=== PATIENT | female | born 1980 | race Caucasian/White ===

== ENCOUNTER 2018-08-16 00:11 | Outpatient (CLI) | payer OTHER, SELFPAY ==
--- NOTE | 2018-08-16 10:00 | DI.RAD_ITS ---
SYMPTOMS/DIAGNOSIS: DISABILITY DETERMINATION, BACK PAIN LUMBAR SPINE: AP and lateral views. There are five lumbar type vertebral bodies. No spondylolysis or spondylolisthesis is appreciated. The vertebral bodies, disc spaces and posterior elements are all well maintained. The bones appear normally mineralized. IMPRESSION: Negative examination. Identified by photo drivers license
== END 2018-08-16 00:31 ==
PROVIDERS: PCP General Practice; Visit Provider Pediatrics Pediatric Rheumatology
DX: M54.5 Low back pain (principal); Z02.71 Encounter for disability determination
CPT/HCPCS: 72100

== ENCOUNTER 2018-09-08 17:00 | Emergency (ER) | payer MEDICAID, SELFPAY ==
[2018-09-08 17:02] VITALS: BP 142/93; PULSE 99; RESP 18; TEMP 36.5; O2SAT 98
[2018-09-08] MEDS: Acetaminophen 500 MG TAB 1000 MG PO (17:20)
[2018-09-08] MEDS: Lidocaine 5% Patch 1 PATCH TP (17:20)
[2018-09-08] MEDS: Albuterol/Ipratropium 3 ML UPD VIAL (17:20)
[2018-09-08] MEDS: Ketorolac 30 MG/ML VIAL IM (17:20)
[2018-09-08] MEDS: diphenhydrAMINE 25 MG CAP (17:42)
--- NOTE | 2018-09-08 17:59 | DI.RAD_ITS ---
SYMPTOM/DIAGNOSIS: COUGH, RT UPPER CHEST PAIN PA AND LATERAL CHEST: The heart is normal in size. The lungs are clear. The mediastinal structures and pleura appear intact. CONCLUSION: Normal chest.
--- NOTE | 2018-09-08 18:26 | ED.GENADUL_ITS ---
Discharge Plan Disposition Patient Disposition: HOME Condition: Good Discharge Details Chief Complaint: RespSymp Clinical Impression: Asthma, Pneumonia Primary Care Provider: Matthew Beckham ED Provider: German Whalen Home Meds and New Rx's Prescriptions: New doxycycline hyclate 100 mg tablet,delayed release (DR/EC) 100 mg PO BID Qty: 20 RF: 0 No Action dextroamphetamine-amphetamine [Adderall XR] 20 MG capsule,extended release 24hr 20 mg PO DAILY Qty: 2 RF: 0 methadone [Dolophine] 10 MG tablet 105 mg PO DAILY RF: 0 amitriptyline 150 MG tablet 150 mg PO DAILY RF: 0 gabapentin 600 mg Tablet 600 mg PO BID RF: 0 prazosin 2 mg Capsule 2 mg PO BID RF: 0 Discharge Instructions Instructions: Asthma (ED), Pneumonia (ED) Additional Instructions: Please take Tylenol and Motrin as needed for pain. Please take the antibiotic as directed. Please use your albuterol inhaler every 4-6 hours for the next 2-3 days. If you notice any worsening of your symptoms, or any new symptoms such as vomiting, diarrhea, fever, chills, shortness of breath, chest pain, numbness, weakness, or fainting , please return immediately to the emergency department for reevaluation. Please follow up with your primary care provider as soon as possible for reassessment and reevaluation. As always, it was a pleasure participating in your medical care today. Referrals: Matthew Beckham MD [Primary Care Provider] - Medical Decision Making This is a pleasant 37-year-old female with a past medical history of tobacco use, and reactive airway disease who presents today for evaluation of cough for the last week and a half, followed by an episode of notable coughing that happened now ago, after which she had mild to moderate reproducible pain in her right upper chest. She denies any fever or chills. She denies any headache, neck pain, pleuritic chest pain, nausea, vomiting, diarrhea. Physical exam is clinically consistent with a musculoskeletal strain, most likely an intercostal strain secondary to her coughing episode. She may very well have a mild community-acquired pneumonia which we will evaluate for with x-ray. X-ray will also evaluate for potential pneumothorax. Vital signs are stable and reassuring. No signs of significant respiratory compromise. No significant clinical red flags or risk factors for PE. 6:30 PM Chest x-ray results are negative for any significant pneumonia, however clinically she is concerning for mild pneumonia with 1-1/2 weeks of symptoms, with productive sputum. We will start her on doxycycline. She has complete resolution of her pain with Lidoderm patch and Toradol. I feel that she is clinically consistent with a mild muscular skeletal strain. Recommend continuation with her albuterol every 4-6 hours. I have extensively reviewed the treatment plan and discharge instructions with the patient. I have addressed all patient concerns at this time. The patient was made aware of what symptoms to monitor for that would warrant a return to the emergency department. Discussed the plan with the patient, they demonstrate verbal understanding and agreement with our assessment and plan at this time. COMPARISON: No relevant prior studies available. FINDINGS: Lungs: Moderately hyperaerated lungs consistent with deep inspiratory effort vs significant reactive airway disease. Pleural space: Unremarkable. No pleural effusion. No pneumothorax. Heart/Mediastinum: Unremarkable. No cardiomegaly. Bones/joints: Unremarkable. IMPRESSION: Moderately hyperaerated lungs consistent with deep inspiratory effort vs significant reactive airway disease. Dictated and Authenticated by: Joey Davis MD. Ordering:BRANDYN Porter MD HPI General Date/Time Provider Initiated Documentation: 09/08/18 17:03 . HPI Narrative: This is a 37-year-old female with past medical history of tobacco abuse and asthma, who presents today for evaluation of cough and right upper chest pain. Patient states that she has had a cough for the last 1-1/2 weeks that has gradually been getting worse. It has productive quiroga sputum. She states that she had a notable coughing fit 1 hour ago and she developed right upper lung chest pain. Her pain is now made worse when she coughs or palpates her chest. Is improved by nothing. She has not taken any Tylenol or Motrin. She has used her inhalers at home this does improve her symptoms. Patient denies any other complaints at this time. Denies PE risk factors such as recent long car rides, immobilization, recent surgery, prior history of DVT or PE, family history of PE or DVT, morbid obesity, exogenous estrogen and smoking, hemoptysis, history of cancer. Related Data Home Medications Medication Instructions Recorded Confirmed methadone [Dolophine] 105 mg PO DAILY 09/20/12 09/08/18 amitriptyline 150 mg PO DAILY 10/05/16 09/08/18 dextroamphetamine-amphetamine 20 mg PO DAILY #2 tab-cap 01/18/17 09/08/18 [Adderall Xr 20mg Capsule Sa] doxycycline hyclate 100 mg PO BID #20 tab 09/08/18 gabapentin 600 mg PO BID 09/08/18 09/08/18 prazosin 2 mg PO BID 09/08/18 09/08/18 Previous Rx's Medication Instructions Recorded doxycycline hyclate 100 mg PO BID #20 tab 09/08/18 Allergies Allergy/AdvReac Type Severity Reaction Status Date / Time Penicillins Allergy Mild Hives Unverified 09/08/18 17:21 General Stated Complaint: RespSymp KARIS: 3 Review of Systems Review of Systems All systems reviewed & are unremarkable except as noted in HPI and below PFSH Surgical History section (~2004) Family History Mother Colon cancer Pancreatic cancer Stroke Social History Smoking/Tobacco Use Status: Current every day Alcohol Intake: never Drug use: Current Sobriety Substance use type: does not use Do you feel safe at home: Yes Do you feel safe in your relationship?: Yes Exam Narrative Exam Narrative: 1.Const: Well-nourished, Well-developed, appearing stated age 2.Eyes: PERRL, no conjunctival injection, and symmetrical lids. 3.ENT: Atraumatic external nose and ears. Moist MM. Neck: Symmetric, trachea midline, No thyromegaly. 4.CVS: +S1/S2, No murmurs or gallops. Peripheral pulses 2+ and equal in all extremities. Brisk capillary refill in all extremities. 5.RESP: Unlabored respiratory effort. Minimal crackles in the bases. No rhonchi. Reproducible tenderness on palpation of the left posterior and left anterior chest wall. 6.GI: Soft, Nontender/Nondistended, No hepatosplenomegaly. No guarding or rebound. 7.MSK: Normocephalic/Atraumatic, Extremities w/o deformity or ttp No cyanosis or clubbing, Normal movement of all extremities 8.Skin: Warm, Dry. No rashes or lesions. 9.Neuro: branch mechanic II-XII grossly intact. Sensation grossly intact, no focal neurologic deficits. 10.Psych: (AAO) x3. Appropriate mood and affect Course Vital Signs Temperature 36.5 C 09/08/18 17:02 Pulse 99 H 03/31/19 17:02 Respiratory Rate 18 09/08/18 17:02 Blood Pressure 142/93 H 09/08/18 17:02 Pulse Oximetry 98 09/08/18 17:02 Temperature 36.5 C 09/08/18 17:02 Temperature Source Temporal Artery Scan 09/08/18 17:02 Pulse 99 H 09/08/18 17:02 Respiratory Rate 18 09/08/18 17:02 Blood Pressure 142/93 H 09/08/18 17:02 Blood Pressure Position Sitting 09/08/18 17:02 Pulse Oximetry 98 09/08/18 17:02 Oxygen Delivery Method Room Air 09/08/18 17:02 Oxygen Flow Rate 0 09/08/18 17:02 Pain Level 7 09/08/18 17:02
--- NOTE | 2018-09-08 18:32 | DI.VRAD_ITS ---
EXAM: XR Chest, 2 Views EXAM DATE/TIME: 09/08/2018 5:09 PM CLINICAL HISTORY: 37 years old, female; Pain; Chest pain; Right-sided chest pain; Patient HX: RT upper chest pain. Cp w/o cough TECHNIQUE: Imaging protocol: XR of the chest, 2 views. COMPARISON: No relevant prior studies available. FINDINGS: Lungs: Moderately hyperaerated lungs consistent with deep inspiratory effort vs significant reactive airway disease. Pleural space: Unremarkable. No pleural effusion. No pneumothorax. Heart/Mediastinum: Unremarkable. No cardiomegaly. Bones/joints: Unremarkable. IMPRESSION: Moderately hyperaerated lungs consistent with deep inspiratory effort vs significant reactive airway disease. Dictated and Authenticated by: Joey Davis MD. Ordering:BRANDYN Porter MD
[2018-09-08 18:51] VITALS: BP 108/59; PULSE 90; RESP 18; TEMP 36.7; O2SAT 95
[2018-09-08] MEDS: Doxycycline Hyclate 100 MG CAP (18:53)
--- NOTE | 2018-09-09 13:09 | NUR.NOTE ---
[facility]ing Note[facility] ER. Per Dr. Isidra Vincent yes the prescription can be replaced with regular Doscycycline. Elida Gan.
== END 2018-09-08 18:53 | disposition home or self-care (01) ==
LOC: ER 19:14
PROVIDERS: Emergency Provider Student in an Organized Health Care Education/Training Program; PCP General Practice
DX: J45.909 Unspecified asthma, uncomplicated (principal); J18.9 Pneumonia, unspecified organism; F17.210 Nicotine dependence, cigarettes, uncomplicated
CPT/HCPCS: 96372; 99284; 71046; J1885; J7620

== ENCOUNTER 2018-12-03 07:31 | Outpatient (CLI) | payer MEDICAID, SELFPAY ==
[2018-12-05 05:23] LABS: Vitamin D 25 Total 10.4 ng/ml (30-100)
[2018-12-06 21:52] LABS: 25-Hydroxy D Total 14 ng/mL; 25-Hydroxy D2 <4.0 ng/mL; 25-Hydroxy D3 14 ng/mL
== END 2018-12-03 07:51 ==
PROVIDERS: PCP General Practice; Visit Provider Nurse Practitioner Psychiatric/Mental Health
DX: F41.1 Generalized anxiety disorder (principal)
CPT/HCPCS: 36415; 82306

== ENCOUNTER 2018-12-30 12:07 | Emergency (ER) | payer MEDICAID, SELFPAY ==
[2018-12-30 12:17] VITALS: BP 112/69; PULSE 105; RESP 16; TEMP 36.8; O2SAT 93
[2018-12-30] MEDS: Normal Saline 1,000 ML 1000 ML IV ×2 (12:58→14:56)
--- NOTE | 2018-12-30 12:59 | DI.RAD_ITS ---
SYMPTOM/DIAGNOSIS; COUGH, CONGESTION, HEADACHE CHEST X-RAY: PA lateral. Comparison is 09/08/18 The heart is normal in size. The lungs are clear. The mediastinal structures and pleura appear intact. CONCLUSION: Normal chest.
[2018-12-30 13:03] LABS: Abs Immature Grans 0.01 k/cumm (0.0-0.09); Absolute Basophil Count 0.01 k/cumm (0.0-0.2); Absolute Eosinophil Count 0.02 k/cumm (0.0-0.7); Absolute Lymphocyte Count 0.99 k/cumm (1.2-3.4); Absolute Monocyte Count 0.48 k/cumm (0.11-0.7); Basophils % 0.1; Eosinophils % 0.3; HCT 36.6 % (36.0-46.0); HGB 11.3 g/dL (12.0-15.5); Immature Grans % 0.1; Lymphocytes % 13.5; Mean Corp. HGB Concentration 30.9 g/dL (32.0-36.0); Mean Corpuscular Hemoglobin 27.2 pg (27.0-33.0); Mean Corpuscular Volume 88.2 fL (80-95); Mean Platelet Volume 10.2 fL (8.0-11.0); Monocytes % 6.6; Neutrophils % 79.4; Platelet Count 231 x1000/uL (130-400); RBC 4.15 m/cumm (4.00-5.20); RBC Distribution Width 15.4 % (11.7-14.6); White Blood Cell Count 7.31 k/cumm (4.4-10.8)
--- NOTE | 2018-12-30 13:10 | ED.GENADUL_ITS ---
Discharge Plan Disposition Patient Disposition: HOME Discharge Details Chief Complaint: Nausea/Vomit/Diar Clinical Impression: URI (upper respiratory infection), Headache, Nausea, Diarrhea Primary Care Provider: Matthew Beckham ED Provider: Eloy Saavedra Home Meds and New Rx's Prescriptions: New prednisone 20 mg tablet 40 mg PO DAILY 5 Days Qty: 10 RF: 0 No Action methadone [Dolophine] 10 MG tablet 105 mg PO DAILY RF: 0 amitriptyline 150 MG tablet 150 mg PO DAILY RF: 0 gabapentin 600 mg Tablet 600 mg PO BID RF: 0 prazosin 2 mg Capsule 2 mg PO BID RF: 0 dexmethylphenidate [Focalin XR] 25 mg Capsule,Er Biphasic 50-50 25 mg PO DAILY RF: 0 Discharge Instructions Instructions: Upper Respiratory Infection (ED), Acute Nausea and Vomiting (ED), General Headache (ED) Additional Instructions: Your blood work today proved to be unremarkable. Your symptoms are concerning for upper respiratory infection. Return to the emergency department should your headache becomes severe, you develop neck stiffness, fever greater than 100.3 Fahrenheit, vomiting, severe abdominal pain or cramping Referrals: Matthew Beckham MD [Primary Care Provider] - 5 days Medical Decision Making Svetlana is a 38-year-old nontoxic-appearing female presenting to the emergency department with constitutional symptoms of headache, nausea, diarrhea and cough. She has stable vitals upon arrival. Exam reveals no focal symptoms. She has no neck pain or stiffness. Headache appears frontal and is similar to her previous migraine headaches. No thunderclap or worst headache of her life. I have very low suspicion for more ominous pathology like meningitis secondary to her exam today along with the clinical course of symptoms lasting more than 1 week. Her abdomen is soft non-tender. Lungs clear to auscultation bilaterally. She does have noted nasal congestion and slight tenderness to frontal and maxillary sinuses. Labs here unremarkable. Chest x-ray negative for pneumonia. Through her course she did drop her O2 sat to the mid 80s with a good Pleth however did not show any signs of deteriorating respiratory status. Patient given DuoNeb here. Sats maintained in the low to mid 90s aferwards. Patient clinically does not show evidence of pneumonia. My suspicion is she is suffering from URI symptoms however she is a chronic smoker. Plan is to start a trial of prednisone 40 mg daily for 5 days to see if it helps improve her symptoms. I gave patient strict return precautions. She is following up with her psychiatrist tomorrow, however urged her to follow-up with her primary care provider should her symptoms persist Lab Data Laboratory Results - last 24 hr 12/30/18 12/30/18 12/30/18 12:54 12:54 13:17 WBC 7.31 RBC 4.15 Hgb 11.3 L Hct 36.6 MCV 88.2 MCH 27.2 MCHC 30.9 L RDW 15.4 H Plt Count 231 MPV 10.2 Immature Gran % 0.1 Neutrophils % 79.4 Lymphocytes % 13.5 Monocytes % 6.6 Eosinophils % 0.3 Basophils % 0.1 Absolute Neutrophils 5.80 Absolute Lymphocytes 0.99 L Absolute Monocytes 0.48 Absolute Eosinophils 0.02 Absolute Basophils 0.01 Sodium 135 L Potassium 4.4 Chloride 94 L Carbon Dioxide 32.2 H Anion Gap 8.8 BUN 9 Creatinine 0.92 Estimated GFR/1.73 m2 >= 60.00 Glucose 94 Calcium 9.2 Magnesium 2.1 Total Bilirubin 0.2 AST 35 ALT 53 Alkaline Phosphatase 137 H Troponin I < 0.05 Total Protein 8.9 H Albumin 3.3 L Urine Color Yellow Urine Clarity Clear Urine pH 5.5 Ur Specific Mcdermott 1.025 Urine Protein 30 H Urine Ketones Negative Urine Blood Small H Urine Nitrite Negative Urine Bilirubin Negative Urine Urobilinogen 0.2 Ur Leukocyte Esterase Negative Urine RBC 20-50 H Urine WBC 5-10 Ur Epithelial Cells Few Urine Crystals Negative Urine Bacteria Few Urine Casts Negative Urine Mucus Heavy Urine Other Ur Culture Indicated? No/sq. contamination Urine Glucose Negative HPI General Date/Time Provider Initiated Documentation: 12/30/18 12:20 . HPI Narrative: Patient is a 38-year-old female with a past medical history of remote migraines who is a pack-a-day smoker presents to the emergency department with roughly 1 week of nausea. She has associated headache. She also reports a nonproductive cough. She denies any fevers. No neck stiffness or pain. She does report a tick bite on her right groin with which she is unsure how long it was attached for. She does report associated diarrhea with the onset of her nausea 1 week ago. She has no abdominal pain. No sick contact. She has been taking Tylenol for her headaches. She states that her headache is frontal in nature and similar to her previous migraines. She has mild photosensitivity. She also reports some tingling in her hands that also seem to be going on for the last week. Her headache has been gradual and at this time she reports it mild in nature. She denies any thunderclap headache. No vomiting associated with her symptoms. Related Data Home Medications Medication Instructions Recorded Confirmed methadone [Dolophine] 105 mg PO DAILY 09/20/12 12/30/18 amitriptyline 150 mg PO DAILY 10/05/16 12/30/18 gabapentin 600 mg PO BID 09/08/18 12/30/18 prazosin 2 mg PO BID 09/08/18 12/30/18 dexmethylphenidate [Focalin XR] 25 mg PO DAILY 12/30/18 12/30/18 prednisone 40 mg PO DAILY 5 Days #10 tab 12/30/18 Previous Rx's Medication Instructions Recorded prednisone 40 mg PO DAILY 5 Days #10 tab 12/30/18 Allergies Allergy/AdvReac Type Severity Reaction Status Date / Time Penicillins Allergy Mild Hives Unverified 12/30/18 12:21 General Stated Complaint: Nausea/Vomit/Diar KARIS: 3 Review of Systems Constitutional Denies anorexia, Reports body ache(s), Reports chills, Reports fatigue, Reports fever(s), Reports headache(s), Reports lethargy and Reports weakness Eyes Denies blind spots, Denies blurry vision, Denies change in vision and Denies eye discharge ENT Reports headache(s), Denies sinus pain, Denies sinus pressure, Denies sore throat, Denies throat swelling and Denies tongue swelling Cardiovascular Denies chest pain, Denies rapid heart rate, Denies pedal edema, Denies edema, Denies irregular heart rhythm, Reports lightheadedness, Denies dyspnea and Denies dyspnea on exertion Respiratory Reports cough, Denies dyspnea, Denies dyspnea on exertion, Denies stridor and Denies wheezing Gastrointestinal Denies abdominal pain, Reports diarrhea, Reports nausea and Denies vomiting Genitourinary Denies abnormal vaginal bleeding, Denies dysuria, Denies pelvic pain and Denies flank pain Musculoskeletal Denies back pain, Denies joint swelling, Denies muscle weakness and Denies stiffness Integumentary/Breasts Denies rash and Denies skin pain Neurologic Reports headache(s), Denies focal weakness and Reports weakness Endocrine Reports fatigue Allergic/Immunologic Denies throat swelling, Denies tongue swelling and Denies wheezing PFSH Surgical History section (~2004) Family History Mother Colon cancer Pancreatic cancer Stroke Social History Smoking/Tobacco Use Status: Current every day Alcohol Intake: never Drug use: Current Sobriety Substance use type: does not use Do you feel safe at home: Yes Do you feel safe in your relationship?: Yes Exam Const General: cooperative, healthy appearing, comfortable and no acute distress Nutritional Appearance: average body habitus Orientation: alert, awake and oriented x3 HENMT Head: normal to inspection, normocephalic and atraumatic Ears: hearing grossly normal bilaterally and TM's normal bilaterally General nose exam: external nose normal Face and sinus: normal facial exam Throat: posterior oropharynx normal Eyes General: appearance normal, both eyes and all related structures Pupils: PERRL EOM: EOM intact bilaterally Neck Neck: normal visual inspection, full ROM, no lymphadenopathy, no meningeal signs, trachea midline and supple Thyroid: thyroid normal Chest Chest: normal inspection of the chest Resp Effort & Inspection: normal respiratory effort Auscultation: clear to auscultation bilaterally Cardio Palpation: normal PMI Heart Sounds: S1 normal and S2 normal Pulses: normal peripheral pulses GI Inspection: normal to inspection Palpation: soft and nontender Skin General skin exam: no rashes or lesions noted Neuro Cranial Nerves: CN's II-XI intact bilaterally Speech: speech normal Gait: normal gait Motor: muscle tone normal throughout Sensory Exam: no sensory deficits noted Extrem General: normal to inspection Course Vital Signs Temperature 36.8 C 12/30/18 12:17 Pulse 105 H 12/30/18 12:17 Respiratory Rate 16 12/30/18 12:17 Blood Pressure 112/69 12/30/18 12:17 Pulse Oximetry 93 L 12/30/18 12:17 Temperature 36.8 C 12/30/18 12:17 Temperature Source Skin 12/30/18 12:17 Pulse 105 H 12/30/18 12:17 Respiratory Rate 16 12/30/18 12:17 Respiratory Effort Non-Labored 12/30/18 12:17 Blood Pressure 112/69 12/30/18 12:17 Blood Pressure Position Sitting 12/30/18 12:17 Pulse Oximetry 93 L 12/30/18 12:17 Oxygen Delivery Method Room Air 12/30/18 12:17 Oxygen Flow Rate 0 12/30/18 12:17 Pain Level 6 12/30/18 12:17 Lab/Test Results Lab/Test Results: Laboratory Tests Range/Units 12/30/18 12:54 WBC (4.4-10.8) k/cumm 7.31 RBC (4.00-5.20) m/cumm 4.15 Hgb (12.0-15.5) g/dL 11.3 L Hct (36.0-46.0) % 36.6 MCV (80-95) fL 88.2 MCH (27.0-33.0) pg 27.2 MCHC (32.0-36.0) g/dL 30.9 L RDW (11.7-14.6) % 15.4 H Plt Count (130-400) x1000/uL 231 MPV (8.0-11.0) fL 10.2 Immature Gran % 0.1 Neutrophils % 79.4 Lymphocytes % 13.5 Monocytes % 6.6 Eosinophils % 0.3 Basophils % 0.1 Absolute Neutrophils (1.2-6.7) k/cumm 5.80 Absolute Lymphocytes (1.2-3.4) k/cumm 0.99 L Absolute Monocytes (0.11-0.7) k/cumm 0.48 Absolute Eosinophils (0.0-0.7) k/cumm 0.02 Absolute Basophils (0.0-0.2) k/cumm 0.01 POC- Test(urine) Negative
[2018-12-30 13:24] LABS: ALT 53 U/L (12-78); AST 35 U/L (15-37); Albumin 3.3 g/dL (3.4-5.0); Alkaline Phosphatase 137 U/L (46-116); Anion Gap 8.8 mmol/L (3-11); BUN 9 mg/dL (7-18); Bilirubin, Total 0.2 mg/dL (0.2-1.0); CO2 32.2 mmol/L (21.0-32.0); CREATININE 0.92 mg/dL (0.55-1.02); Calcium 9.2 mg/dL (8.5-10.1); Chloride 94 mmol/L (98-107); Glucose 94 mg/dL (70-100); Magnesium 2.1 mg/dL (1.8-2.4); Potassium 4.4 mmol/L (3.5-5.1); Sodium 135 mmol/L (136-145); Total Protein 8.9 g/dL (6.4-8.2)
[2018-12-30 13:26] LABS: Troponin I < 0.05 ng/mL (0.00-0.06)
[2018-12-30 13:29] LABS: Bilirubin Negative (Negative); Blood Small (Negative); Clarity Clear (Clear); Glucose Negative (Negative); Ketones Negative (Negative); Leukocyte Esterase Negative (Negative); Nitrite Negative (Negative); Specific Gravity 1.025 (1.005-1.025); Urobilinogen 0.2 EU/dL (Up TO 0.2); pH 5.5 (5-8)
[2018-12-30 13:48] LABS: Epithelial Cells Few HPF (Negative); RBC 20-50 (0-2)
[2018-12-30 13:49] LABS: Bacteria Few HPF (Negative); C & S Indicated? No/Sq. Contamination; Casts Negative LPF (Negative); Crystals Negative HPF (Negative); Mucus Heavy (Negative)
[2018-12-30] MEDS: Ketorolac 15 MG/ML VIAL IVP (14:19)
[2018-12-30] MEDS: Ondansetron 4 MG/2 ML VIAL IVP ×2 (14:20→14:57)
[2018-12-30 15:07] VITALS: BP 103/65; PULSE 91; RESP 16; O2SAT 90
--- NOTE | 2018-12-30 15:07 | NUR.NOTE ---
Nursing Note: pt oxygen saturation dropped to 90% on room air. PA at bedside to assess patient. Nebulizer ordered. Pt in no signs of distress. slow and even respirations noted.
[2018-12-30] MEDS: Albuterol/Ipratropium 3 ML UPD VIAL UPD (15:15)
[2018-12-30 15:59] VITALS: BP 101/68; PULSE 91; RESP 18; TEMP 37.6; O2SAT 91
[2018-12-31 11:30] LABS: Lyme Ab w Rflx to Lyme Confirm Negative
[2019-01-02 01:46] LABS: Anaplasma phagocytophilum Negative (Negative); B. miyamotoi PCR Negative (Negative); Babesia divergens/MO-1 Negative (Negative); Babesia duncani Negative (Negative); Babesia microti Negative (Negative); Ehrlichia chaffeensis Negative (Negative); Ehrlichia ewingii/canis Negative (Negative); Ehrlichia muris eauclairensis Negative (Negative)
== END 2018-12-30 16:01 | disposition home or self-care (01) ==
PROVIDERS: Emergency Provider Physician Assistant; PCP General Practice
DX: J06.9 Acute upper respiratory infection, unspecified (principal); R51 Headache; R19.7 Diarrhea, unspecified; R11.0 Nausea
CPT/HCPCS: 36415; 80053; 81025; 87798; 96361; 96374; 96375; 96376; 99284; 71046; 81003; 81015; 83735; 84484; 85025; 86618; J1885; J2405; J7620

== ENCOUNTER 2019-01-13 10:34 | Outpatient (CLI) | payer MEDICAID, SELFPAY ==
[2019-01-13 13:00] LABS: ALT 36 U/L (12-78); AST 23 U/L (15-37); Albumin 2.6 g/dL (3.4-5.0); Alkaline Phosphatase 123 U/L (46-116); Anion Gap 9.3 mmol/L (3-11); BUN 7 mg/dL (7-18); Bilirubin, Total 0.2 mg/dL (0.2-1.0); CO2 29.7 mmol/L (21.0-32.0); CREATININE 0.89 mg/dL (0.55-1.02); Calcium 8.9 mg/dL (8.5-10.1); Chloride 101 mmol/L (98-107); Glucose 96 mg/dL (70-100); Potassium 4.5 mmol/L (3.5-5.1); Sodium 140 mmol/L (136-145); Total Protein 7.1 g/dL (6.4-8.2)
[2019-01-13 13:25] LABS: Vitamin D 25 Total 11.1 ng/ml (30-100)
[2019-01-16 01:33] LABS: Nortriptyline 237 ng/mL (70-170)
== END 2019-01-13 10:54 ==
PROVIDERS: PCP General Practice; Visit Provider Nurse Practitioner Psychiatric/Mental Health
DX: F41.1 Generalized anxiety disorder (principal); Z51.81 Encounter for therapeutic drug level monitoring; Z79.899 Other long term (current) drug therapy
CPT/HCPCS: 36415; 80053; 80335; 82306

== ENCOUNTER 2019-02-17 10:53 | Outpatient (CLI) | payer MEDICAID, SELFPAY ==
[2019-02-19 16:00] LABS: Nortriptyline 26 ng/mL (70-170)
== END 2019-02-17 11:13 ==
PROVIDERS: PCP General Practice; Visit Provider Nurse Practitioner Psychiatric/Mental Health
DX: F41.1 Generalized anxiety disorder (principal); Z51.81 Encounter for therapeutic drug level monitoring; Z79.899 Other long term (current) drug therapy
CPT/HCPCS: 36415; 80335; 93005; 93010

== ENCOUNTER 2019-03-31 01:11 | Outpatient (CLI) | payer MEDICAID, SELFPAY ==
--- NOTE | 2019-03-31 11:15 | DI.MRI_ITS ---
EXAM: MR LUMBAR SPINE WO CLINICAL HISTORY: L SIDED SCIATICA M54.32. TECHNIQUE: Multiplanar multisequence MRI was performed. COMPARISON: XR lumbar spine AP, LAT from 08/16/2018 XR lumbar spine AP, LAT from 08/16/2018 MR LUMBAR SPINE WO from 03/31/2019 FINDINGS: There is a large central disc herniation at L5-S1. There is deviation of the thecal sac anteriorly. T here may be mild nerve root impingement on the left side. There is no significant neural foraminal na rrowing. The remaining discs have a normal appearance. The vertebral bodies are well maintained in he ight. The conus medullaris appears normal. IMPRESSION: Large central disc protrusion at L5-S1.
--- NOTE | 2019-03-31 15:59 | DI.VRAD_ITS ---
PROCEDURE INFORMATION: Exam: MR Lumbar Spine Without Contrast. Exam date and time: 03/31/2019 11:54 AM Clinical history: 38 years old, female; Other: Lbp and lt sciatica; Patient HX: No h/o SX, no known injury TECHNIQUE: Imaging protocol: Multiplanar magnetic resonance images of the lumbar spine without intravenous contrast. COMPARISON: CR XR lumbar spine AP, LAT 08/16/2018 10:04 AM FINDINGS: Vertebrae: Unremarkable. Spinal cord: Normal signal. No cord compression. L1-L2: No significant disc disease. No significant spinal stenosis. L2-L3: No significant disc disease. No significant spinal stenosis. L3-L4: No significant disc disease. No significant spinal stenosis. L4-L5: No significant disc disease. No significant spinal stenosis. L5-S1: Broad-based 8 mm central disc extrusion, with effacement of epidural fat at the left lateral recess. No significant foraminal stenosis. Soft tissues: Unremarkable. IMPRESSION: Broad-based 8 mm central disc extrusion L5-S1. Dictated and Authenticated by: Matthew Shelton MD. Ordering:MENA Castro MD
== END 2019-03-31 01:31 ==
PROVIDERS: PCP General Practice; Visit Provider General Practice
DX: M51.17 Intervertebral disc disorders with radiculopathy, lumbosacral region (principal); M54.32 Sciatica, left side
CPT/HCPCS: 72148

== ENCOUNTER 2020-03-16 09:16 | Emergency (ER) | payer MEDICAID, SELFPAY ==
[2020-03-16 09:18] VITALS: BP 121/87; PULSE 98; RESP 20; TEMP 36.8; O2SAT 98
--- NOTE | 2020-03-16 09:30 | RT.EKG_ITS ---
APPROVED REPORT Exam: Resting ECG Patient Location: E HR:88 bpm ECG Measurements Heart Rate 88 AXIS UT 211 P 6 QRSd 83 QRS -3 QT 382 T 2 QTc 462 Conclusion Sinus rhythm...normal P axis, V-rate 60- 99 Prolonged UT interval...UT >210, V-rate 50- 90
--- NOTE | 2020-03-16 09:40 | ED.GENADUL_ITS ---
Discharge Plan Disposition Patient Disposition: HOME Condition: Stable Discharge Details Clinical Impression: Pharyngitis Primary Care Provider: Bryant Ballesteros ED Provider: Nas Tyler Home Meds and New Rx's Prescriptions: Continued methadone [Dolophine] 10 MG tablet 110 mg PO DAILY RF: 0 clonidine HCl 0.1 mg tablet 0.1 mg PO BID PRNRF: 0 gabapentin 600 mg tablet 600 mg PO QID RF: 0 zolpidem 10 mg tablet 10 mg PO QHS RF: 0 amitriptyline 150 MG tablet 50 mg PO DAILY RF: 0 Discharge Instructions Instructions: Pharyngitis (ED) Additional Instructions: Rapid strep test was negative, culture pending. COVID also pending. Jxqg-hhv-tprfutx Tylenol and/or Motrin as directed for discomfort. You may also use uhep-skv-oasnjam Chloraseptic spray as directed. Salt water gargling as tolerated. Please watch for new or worsening symptoms and return to the ER for any concerns. I do recommend reaching out your primary care provider later today or tomorrow for prompt outpatient reevaluation. Stand Alone Forms: POSITIVE COVID-19/TO BE TESTED Medical Decision Making 39-year-old female who presents with headache, nausea, vomiting, sore throat, dry cough that began yesterday, now only complains of ongoing sore throat. She has not taken any srxi-yze-pighrdi medications for her symptoms. She appears well, nontoxic. Heart rate in the 90s, blood pressure 121/87, she is afebrile, O2 sats in the high 90s on room air. Erythema across the posterior pharynx but there is no swelling, edema, uvula shift, evidence of peritonsillar abscess. She is able to speak in full sentences and manage her airway without difficulty. Will obtain rapid strep for potential strep throat as that is the patient's primary concern. Given her headache, dry cough, we will also obtain a COVID a swab. Regarding her left arm sensation, this is likely paresthesias secondary to potential nerve impingement or sleeping on the arm in a awkward manner. She denies any arm pain, chest pain, shortness of breath, radiation of pain into her neck, back, down her arm. Extremely low suspicion for ACS. Will obtain EKG for further evaluation. Rapid strep test negative, culture pending. EKG is normal sinus rhythm, rate in the 80s, no STEMI. COVID pending. Discussed work-up with patient. She understands that both the strep culture and COVID are pending. She will need to quarantine until the COVID results have resulted. I will provide her a handout regarding this. We discussed adequate hydration, uqhs-cpb-bhetwxq medications such as Tylenol, Motrin, Chloraseptic spray, and using salt water gargles. She was encouraged to watch for new or worsening symptoms and return to the ER for any concerns, otherwise follow-up with her primary care provider. Patient has no additional questions or concerns and is comfortable discharge. Medical Records Medical records reviewed: Yes I reviewed the patient's medical records. Lab Data Lab results reviewed: Yes I reviewed the patient's lab results. Lab results narrative: 03/16/20 09:20 Tonsil - Not Specified Streptococcus Screen (JACOB) - Pending ECG Data Attestation: I personally reviewed and interpreted this ECG (s) as follows: Interpretation: Please see official report by Dr. Valero. Sinus rhythm, ventricular rate of 88. No STEMI. HPI General Mode of arrival: ambulatory . Date/Time Provider Initiated Documentation: 03/16/20 09:25 . Limitations to Documentation: no limitations . Information obtained by: patient . HPI Narrative: This is a 39-year-old female, current smoker, presents to the ER reporting that she developed a headache, dry cough and a sore throat today. She had mild nausea and vomiting with a headache, does have a history of migraines and this feels typical of her migraines. She reports that the headache, nausea, vomiting have resolved completely however the sore throat has worsened, now moderate, reports slightly worse on the left side. She denies ear pain, fever, chest pain, shortness of breath, abdominal pain, change in bowel or bladder function. She has not taken any medication jfwr-eyr-hksfouj for her symptoms. She also reports that her left upper arm has a tingling sensation and this began yesterday morning upon waking. She believes that she slept on her shoulder and/or arm in a funny position, it is progressively getting better but has not resolved completely. Denies any chest pain, neck pain, upper back pain, pain in the arm whatsoever. The paresthesias do not travel past the elbow. Related Data Home Medications Medication Instructions Recorded Confirmed methadone [Dolophine] 110 mg PO DAILY 09/20/12 03/16/20 amitriptyline 50 mg PO DAILY 10/05/16 03/16/20 clonidine HCl 0.1 mg PO BID PRN 03/16/20 03/16/20 gabapentin 600 mg PO QID 03/16/20 03/16/20 zolpidem 10 mg PO QHS 03/16/20 03/16/20 Allergies Allergy/AdvReac Type Severity Reaction Status Date / Time Penicillins Allergy Mild Hives Unverified 03/16/20 09:24 General Stated Complaint: Sorethroat KARIS: 4 Review of Systems Constitutional Constitutional: Denies fatigue, Denies fever(s), Reports headache(s) and Denies weakness Eyes Eyes: Denies change in vision ENT Ears, Nose, Mouth, and Throat: Reports headache(s), Denies neck pain and Reports sore throat Cardiovascular Cardiovascular: Denies chest pain and Denies dyspnea Respiratory Respiratory: Denies cough and Denies dyspnea Gastrointestinal Gastrointestinal: Denies abdominal pain, Reports nausea and Reports vomiting Musculoskeletal Musculoskeletal: Denies neck pain, Denies numbness and Reports tingling Integumentary/Breasts Skin/Breast: Denies rash Neurologic Neurologic: Reports headache(s), Denies numbness, Reports tingling and Denies weakness Endocrine Endocrine: Denies fatigue [facility] History section (~2004) Family History Mother Colon cancer Dx in 50s Pancreatic cancer Stroke Social History Smoking/Tobacco Use Status: Current every day Tobacco Type: cigarettes Alcohol Intake: never Drug use: Current Sobriety Substance use type: does not use Do you feel safe at home: Yes Do you feel safe in your relationship?: Yes Exam Const General: cooperative, healthy appearing, comfortable and no acute distress Orientation: alert, awake and oriented x3 HENMT Head: normal to inspection, normocephalic and atraumatic Ears: external ears normal, TM's normal bilaterally and EAC's normal General nose exam: external nose normal Face and sinus: normal facial exam Mouth: oral mucosae normal and moist mucous membranes Teeth and gingiva: dentition normal Throat: uvula not midline, no peritonsillar masses, posterior oropharynx abnormal erythema; no exudates, no postnasal drainage, uvula not displaced and no uvular edema Eyes General: appearance normal, both eyes and all related structures Alignment and Position: alignment normal Periorbital: periorbital findings normal Eyelids: eyelids normal Conjunctivae: conjunctivae normal Sclera: sclerae normal Cornea: corneas normal Pupils: PERRL EOM: EOM intact bilaterally Direct ophthalmoscopy: normal light reflex Neck Neck: normal visual inspection, full ROM, no lymphadenopathy, no meningeal signs, trachea midline, supple and nontender Resp Effort & Inspection: normal respiratory effort and able to speak in complete sentences Auscultation: clear to auscultation bilaterally Cardio Rate: regular rate Rhythm: regular rhythm GI Palpation: soft and nontender Back/Spine/Pelvis Back: No back tenderness Skin General skin exam: no rashes or lesions noted Neuro General: patient alert, patient awake, patient oriented x3, moves all extremities and no focal motor deficits Cognition: normal cognition Speech: speech normal Motor: muscle tone normal throughout and strength 5/5 throughout Sensory Exam: no sensory deficits noted (Other than left upper arm) Other: Left upper arm over the lateral deltoid, patient subjectively feels slightly different sensation to palpation however there is no erythema, warmth, swelling, tenderness. Full range of motion of the shoulder. No bony point tenderness. Psych Appearance: grossly normal Mental Status: mental status grossly normal Course Vital Signs Vital signs: Vital Signs Temperature 36.8 C 03/16/20 09:18 Pulse 98 H 03/16/20 09:18 Respiratory Rate 20 03/16/20 09:18 Blood Pressure 121/87 03/16/20 09:18 Pulse Oximetry 98 03/16/20 09:18 Temperature 36.8 C 03/16/20 09:18 Temperature Source Temporal Artery Scan 03/16/20 09:18 Pulse 98 H 03/16/20 09:18 Respiratory Rate 20 03/16/20 09:18 Respiratory Effort Non-Labored 03/16/20 09:21 Blood Pressure 121/87 03/16/20 09:18 Blood Pressure Position Sitting 03/16/20 09:18 Pulse Oximetry 98 03/16/20 09:18 Oxygen Delivery Method Room Air 03/16/20 09:18 Oxygen Flow Rate 0 03/16/20 09:18 Pain Level 6 03/16/20 09:18 Lab/Test Results Lab/Test Results: 03/16/20 09:20 Tonsil - Not Specified Streptococcus Screen (JACOB) - Pending POC Strep Test-JONATHAN(Rapid) Start: 03/16/20 09:28 Freq: .Rapid Strep Test Status: Active Protocol: Document 03/16/20 09:32 TB (Rec: 03/16/20 09:32 TB [email or web address]) Strep test-JONATHAN(Rapid)-POC POC-Strep test-JONATHAN (Rapid) Negative POC-Strep test-JONATHAN (Rapid) Negative
[2020-03-18 15:23] LABS: Patient Race White; SARS-CoV-2 RNA Undetected (Undetected); SARS-CoV-2 Specimen Source Nasopharynx
== END 2020-03-16 10:17 | disposition home or self-care (01) ==
PROVIDERS: Emergency Provider Physician Assistant; PCP Nurse Practitioner Family
DX: J02.0 Streptococcal pharyngitis (principal); R51.9 Headache, unspecified; R05 Cough; R20.2 Paresthesia of skin; Z11.59 Encounter for screening for other viral diseases; F17.210 Nicotine dependence, cigarettes, uncomplicated
CPT/HCPCS: 87880; 93005; 99283; U0003; 87081; 93010

== ENCOUNTER 2020-09-29 08:36 | Emergency (ER) | payer MEDICAID, SELFPAY ==
[2020-09-29 08:42] VITALS: BP 98/75; PULSE 87; RESP 16; TEMP 36.6; O2SAT 97
--- NOTE | 2020-09-29 08:45 | DI.RAD_ITS ---
EXAM: XR ANKLE RT COMPLETE CLINICAL HISTORY: pain after rotational injury. TECHNIQUE: 2D digital imaging was performed. COMPARISON: No exams were available for comparison FINDINGS: There is no evidence of fracture or widening of the mortise. Talar dome unremarkable. No tarsal oss eous coalition. IMPRESSION: No fracture evident. DATA REPOSITORY: RADIATION DOSE DELIVERED:
--- NOTE | 2020-09-29 08:53 | ED.GENADUL_ITS ---
Discharge Plan Disposition Patient Disposition: HOME Condition: Good Discharge Details Clinical Impression: Ankle sprain Primary Care Provider: Bryant Ballesteros ED Provider: Venecia Gold Home Meds and New Rx's Prescriptions: Continued methadone [Dolophine] 10 MG tablet 110 mg PO DAILY RF: 0 clonidine HCl 0.1 mg tablet 0.1 mg PO BID PRNRF: 0 gabapentin 600 mg tablet 600 mg PO QID RF: 0 zolpidem 10 mg tablet 10 mg PO QHS RF: 0 amitriptyline 150 MG tablet 50 mg PO DAILY RF: 0 Discharge Instructions Instructions: Ankle Sprain (ED) Additional Instructions: Imaging is reassuring for no fracture. I am concerned about sprain. Encourage rest, ice, elevation. Tylenol and/or Ibuprofen as needed for discomfort. Con tinue with splint to help support and help with pain. Follow up with primary care in 2 weeks for reevaluation. If you develops new/worsening symptoms please seek care urgently once again. Referrals: Bryant Ballesteros, [employer] [Primary Care Provider] - Medical Decision Making Patient is a pleasant 40 year old female presenting today with c/c of right ankle pain x 2 weeks. Internal rotational event when coming off step at work. No other injury at the time of the incident. Initially had lateral pain, now she reports that pain wraps around front and medial ankle. No difficulty with ambulation. On exam, patient appears nontoxic. I not see any objective swelling, discoloration. No palpable deformity. No pain over the fifth metatarsal. No pain over the proximal fibula. Mild discomfort over the lateral aspect of the ankle but this appears fairly vague and has not specific to the lateral malleolus or the ligamentous region. Pain is maximal when applying pressure to the anterior aspect of the ankle with ligamentous testing. No ligamentous laxity is appreciated on exam. She denies discussed differential. Primarily concern for sprain based on exam. However, given the length of time since the injury and persistent pain I do feel that imaging for potential fracture is appropriate. FINDINGS: There is no evidence of fracture or widening of the mortise. Talar dome unremarkable. No tarsal osseous coalition. IMPRESSION: No fracture evident. Discussed findings with the patient. Concerned for ankle sprain. Will splint. Encouraged RICE. Advised f/u with PCP in 2 weeks for reevaluation. REturn precautions were discussed. All of her questions and concerns were addressed, she is in agreement with this plan. HPI General Mode of arrival: ambulatory . Date/Time Provider Initiated Documentation: 09/29/20 08:53 . Limitations to Documentation: no limitations . Information obtained by: patient and RN notes reviewed . History of Present Illness 40 year old F presents to the emergency department with the chief c omplaint of right ankle pain, described as moderate, with intensity rated at 8. Quality is described as aching, and is localized to the right and lower extremity. Patient reports no radiation. Patient started experiencing this week(s) (2) and it has been constant. Immobilization improves symptom(s), Movement worsens symptoms . Patient notes no other symptoms.. Patient did receive the following treatments prior to arrival, none Related Data Home Medications Medication Instructions Recorded Confirmed methadone [Dolophine] 110 mg PO DAILY 09/20/12 09/29/20 amitriptyline 50 mg PO DAILY 10/05/16 09/29/20 clonidine HCl 0.1 mg PO BID PRN 03/16/20 09/29/20 gabapentin 600 mg PO QID 03/16/20 09/29/20 zolpidem 10 mg PO QHS 03/16/20 09/29/20 Allergies Allergy/AdvReac Type Severity Reaction Status Date / Time Penicillins Allergy Mild Hives Unverified 09/29/20 08:46 General Stated Complaint: Orthopedic KARIS: 4 Review of Systems Constitutional Constitutional: Reports as per HPI, Denies chills, Denies fever(s), Denies headache(s) and Denies weakness ENT Ears, Nose, Mouth, and Throat: Denies headache(s) Cardiovascular Cardiovascular: Reports as per HPI Respiratory Respiratory: Reports as per HPI and Denies cough Musculoskeletal Musculoskeletal: Reports as per HPI and Denies tingling Integumentary/Breasts Skin/Breast: Reports as per HPI, Denies rash and Denies wounds Neurologic Neurologic: Reports as per HPI, Denies headache(s), Denies tingling, Denies paresthesias and Denies weakness PFSH Surgical History section (~2004) Family History Mother Colon cancer Dx in 50s Pancreatic cancer Stroke Social History Smoking/Tobacco Use Status: Current every day Tobacco Type: cigarettes Smoking risk assessment performed?: Yes Alcohol Intake: never Drug use: Current Sobriety Substance use type: does not use Do you feel safe at home: Yes Do you feel safe in your relationship?: Yes Exam Const General: cooperative, healthy appearing, comfortable, no acute distress, well developed and well groomed Nutritional Appearance: average body habitus and well nourished Orientation: alert and awake Resp Effort & Inspection: normal respiratory effort, able to speak in complete sentences and no respiratory distress Cardio Rate: regular rate Rhythm: regular rhythm Skin General skin exam: no rashes or lesions noted Lesions: no lesions Rashes: no rashes Trauma: no lacerations or abrasions Neuro General: patient alert and patient awake Cognition: normal cognition Speech: speech normal Gait: normal gait Motor: muscle tone normal throughout Sensory Exam: no sensory deficits noted Extrem Ankle/foot/toe images: 1. Patient indicates lateral malleolus as area of pain. No ecchymosis, swelling, erythema, break in the skin No pain with palpation at this time. Achilles intact, normal Knutson test. No pain with palp of foot, no pain over 5th metatarsal. No pain over proximal fibula. 2+ distal pulses, sensation intact. No gross instability with stress testing. No pain over medial malleolus. Mild pain with palpation over anterior ankle. Psych Appearance: grossly normal and well kempt Mental Status: mental status grossly normal Speech and Movement: speech and movement normal Course Vital Signs Vital signs: Vital Signs Temperature 36.6 C 09/29/20 08:42 Pulse 87 09/29/20 08:42 Respiratory Rate 16 09/29/20 08:42 Blood Pressure 98/75 L 09/29/20 08:42 Pulse Oximetry 97 09/29/20 08:42 Temperature 36.6 C 09/29/20 08:42 Temperature Source Temporal Artery Scan 09/29/20 08:42 Pulse 87 09/29/20 08:42 Respiratory Rate 16 09/29/20 08:42 Respiratory Effort 09/29/20 08:46 Blood Pressure 98/75 L 09/29/20 08:42 Blood Pressure Position Sitting 09/29/20 08:42 Pulse Oximetry 97 09/29/20 08:42 Oxygen Delivery Method Room Air 09/29/20 08:42 Oxygen Flow Rate 0 09/29/20 08:42 Pain Level 8 09/29/20 08:47
== END 2020-09-29 10:05 | disposition home or self-care (01) ==
PROVIDERS: Emergency Provider Physician Assistant; PCP Nurse Practitioner Family
DX: S93.491A Sprain of other ligament of right ankle, initial encounter (principal); W18.39XA Other fall on same level, initial encounter
CPT/HCPCS: 99283; 73610

== ENCOUNTER 2021-01-18 01:25 | Emergency (ER) | payer MEDICAID, SELFPAY ==
[2021-01-18 01:23] VITALS: BP 136/73; PULSE 89; RESP 18; TEMP 36.5; O2SAT 98
--- NOTE | 2021-01-18 01:41 | ED.GENADUL_ITS ---
Discharge Plan Disposition Patient Disposition: HOME Condition: Improving Discharge Details Clinical Impression: Anxiety about health Primary Care Provider: Bryant Ballesteros ED Provider: Anibal Valero Home Meds and New Rx's Prescriptions: Continued methadone [Dolophine] 10 MG tablet 110 mg PO DAILY RF: 0 clonidine HCl 0.1 mg tablet 0.1 mg PO BID PRNRF: 0 zolpidem 10 mg tablet 10 mg PO QHS RF: 0 gabapentin 800 mg Tablet 800 mg PO TID RF: 0 amitriptyline 150 MG tablet 50 mg PO DAILY RF: 0 Discharge Instructions Instructions: Anxiety (ED) Additional Instructions: Please follow-up with Dr. Amanda in the office this week for recheck. Continue your regular medications. May use the provided Benadryl at bedtime for itching and to aid with sleep. Medical Decision Making 40-year-old female who called EMS because she was worried about bacteria in her apartment, which caused her to lose some sleep. She reports feeling anxious about this. No new insect bites no difficulty breathing, no rash. On exam the patient slightly anxious but otherwise has an unremarkable examination. Discussed with her that there is no specific testing for bacteria or parasites that she may have been exposed to. Discussed with her that her exam is reassuring. Patient given oral anxiolytic, will offer Benadryl for home. She will follow-up with her outpatient psychiatry team. HPI General Mode of arrival: EMS . Date/Time Provider Initiated Documentation: 01/18/21 01:44 . Information obtained by: patient and EMS . History of Present Illness 40 year old F presents to the emergency department with the chief complaint of Anxious, described as moderate, Quality is described as constant, and is localized to the head. Patient started experiencing this day(s) and it has been inter mittent. No relieving factors improve symptom(s), No exacerbating factors reported . Patient notes denies fever/chills, rash, shortness of breath and syncope. Patient did receive the following treatments prior to arrival, none Related Data Home Medications Medication Instructions Recorded Confirmed methadone [Dolophine] 110 mg PO DAILY 09/20/12 01/18/21 amitriptyline 50 mg PO DAILY 10/05/16 01/18/21 clonidine HCl 0.1 mg PO BID PRN 03/16/20 01/18/21 zolpidem 10 mg PO QHS 03/16/20 01/18/21 gabapentin 800 mg PO TID 01/18/21 01/18/21 Allergies Allergy/AdvReac Type Severity Reaction Status Date / Time Penicillins Allergy Mild Hives Unverified 09/29/20 08:46 General Stated Complaint: GenMedical KARIS: 3 Review of Systems Narrative: No recent illness. Is concerned for bacteria in her home. No other specific complaints. Not sleeping all the time. 6 systems reviewed and otherwise negative [facility] Surgical History section (~2004) Family History Mother Colon cancer Dx in 50s Pancreatic cancer Stroke Social History Smoking/Tobacco Use Status: Current every day Tobacco Type: cigarettes Smoking risk assessment performed?: Yes Alcohol Intake: never Drug use: Current Sobriety Substance use type: does not use Do you feel safe at home: Yes Do you feel safe in your relationship?: Yes Exam Narrative Exam Narrative: GEN: awake, alert, oriented 3. Pleasant, well groomed, interactive. HEAD: Normocephalic, atraumatic ENT: Mucous membranes moist, oropharynx unremarkable, External ear exam unremarkable EYES: PERRL, EOMI NECK: Full ROM, no DANELLE, no menigismus CHEST/RESP: Nontender, clear to auscultation bilateral, no wheeze/rhonchi/rales CARDIOVASCULAR: RRR, no murmur, rub madeline. 2+ Rad pulse bilateral ABDOMEN: Soft, nontender, no mass. +Bowel sounds EXT: Full ROM, no edema, no rash Neuro: Grossly normal neurologic exam, conversant, interactive. Psych: Speech fluent, thoughts congruent, affect anxious Course Vital Signs Vital signs: Vital Signs Temperature 36.5 C 01/18/21 01:23 Pulse 89 01/18/21 01:23 Respiratory Rate 18 01/18/21 01:23 Blood Pressure 136/73 01/18/21 01:23 Pulse Oximetry 98 01/18/21 01:23 Temperature 36.5 C 01/18/21 01:23 Temperature Source Temporal Artery Scan 01/18/21 01:23 Pulse 89 01/18/21 01:23 Respiratory Rate 18 01/18/21 01:23 Respiratory Effort Non-Labored 01/18/21 01:35 Blood Pressure 136/73 01/18/21 01:23 Blood Pressure Position Sitting 01/18/21 01:23 Pulse Oximetry 98 01/18/21 01:23 Oxygen Delivery Method Room Air 01/18/21 01:23 Oxygen Flow Rate 0 01/18/21 01:23 Pain Level 0 01/18/21 01:23
[2021-01-18] MEDS: LORazepam 1 MG TAB PO (01:46)
[2021-01-18] MEDS: diphenhydrAMINE 25 MG CAP 50 MG PO (01:51)
[2021-01-18 01:57] VITALS: RESP 18
== END 2021-01-18 02:20 | disposition home or self-care (01) ==
LOC: ER 02:16
PROVIDERS: Emergency Provider Emergency Medicine; PCP Nurse Practitioner Family
DX: F41.9 Anxiety disorder, unspecified (principal)
CPT/HCPCS: 99283

== ENCOUNTER 2021-01-20 15:10 | Emergency (ER) | payer MEDICAID, SELFPAY ==
[2021-01-20 15:10] VITALS: BP 125/72; PULSE 98; RESP 20; TEMP 37.1; O2SAT 97
[2021-01-20 17:58] LABS: Bilirubin Negative (Negative); Blood Negative (Negative); Clarity Sl Cloudy (Clear); Glucose Negative (Negative); Ketones Negative (Negative); Leukocyte Esterase Negative (Negative); Nitrite Negative (Negative); Specific Gravity 1.015 (1.005-1.025); Urobilinogen 0.2 EU/dL (Up TO 0.2)
[2021-01-20 18:15] LABS: Abs Immature Grans 0.01 10^3/uL (0.0-0.06); Absolute Basophil Count 0.02 10^3/uL (0.0-0.2); Absolute Eosinophil Count 0.38 10^3/uL (0.0-0.7); Absolute Lymphocyte Count 2.69 10^3/uL (1.2-3.4); Absolute Neutrophil Count 3.14 10^3/uL (1.2-6.7); Basophils % 0.3; Eosinophils % 5.7; HCT 33.7 % (36.0-46.0); HGB 10.5 g/dL (11.2-15.7); Immature Grans % 0.2; Lymphocytes % 40.5; MCH 27.6 pg (27.0-33.0); MCHC 31.2 % (32.0-36.0); MCV 88.5 fL (80-95); Neutrophils % 47.3; Nucleated RBC 0 %; Platelet Count 271 10^3/uL (130-400); RBC 3.81 10^6/uL (3.93-5.22); RDW 14.6 % (11.7-14.6); WBC 6.64 10^3/uL (4.4-10.8)
[2021-01-20 18:15] LABS: *AMPHETAMINES SCREEN URINE Positive (Negative); *BARBITURATES SCREEN URINE Negative (Negative); *BENZODIAZEPINES SCREEN URINE Negative (Negative); Cannabinoids THC Negative (Negative); Cocaine Screen,Urine Positive (Negative); METHADONE URINE SCREEN Positive (Negative); OPIATES URINE SCREEN Negative (Negative)
[2021-01-20 18:19] LABS: Tricyclic Antidepressants Positive (Negative)
[2021-01-20 18:38] LABS: ALT 48 U/L (14-59); AST 25 U/L (15-37); Albumin 3.4 g/dL (3.4-5.0); Alkaline Phosphatase 95 U/L (46-116); Anion Gap 1.8 mmol/L (3-11); BUN 4 mg/dL (7-18); Bilirubin, Total 0.1 mg/dL (0.2-1.0); CO2 32.2 mmol/L (21.0-32.0); Calcium 9.2 mg/dL (8.5-10.1); Chloride 105 mmol/L (98-107); Glucose 109 mg/dL (74-106); Potassium 3.1 mmol/L (3.5-5.1); Sodium 139 mmol/L (136-145); Total Protein 7.7 g/dL (6.4-8.2)
[2021-01-20 18:51] LABS: ETHANOL BLOOD < 3.0 mg/dL (<3)
--- NOTE | 2021-01-20 18:53 | W.ED.GENAD ---
Discharge Plan Disposition Patient Disposition: HOME Condition: Stable Discharge Details Clinical Impression: Anxiety about health Primary Care Provider: Bryant Ballesteros ED Provider: Jojo Nguyen Home Meds and New Rx's Prescriptions: Continued methadone [Dolophine] 10 MG tablet 110 mg PO DAILY RF: 0 clonidine HCl 0.1 mg tablet 0.1 mg PO HS RF: 0 zolpidem 10 mg tablet 10 mg PO QHS RF: 0 gabapentin 800 mg Tablet 800 mg PO TID RF: 0 amitriptyline 150 MG tablet 150 mg PO HS RF: 0 Discharge Instructions Instructions: Anxiety (ED) Additional Instructions: do not work if you are impaired. take medications as directed only Stand Alone Forms: Work Release Referrals: Bryant Ballesteros, [facility]MAN [Primary Care Provider] - Discharge Data Discharge Date/Time-TO BE ENTERED AT DEPARTURE: 01/20/21 19:39 Medical Decision Making patient presents for evaluation of feeling off reports falling asleep. denies suicidal or homicidal ideation. discussed lab findings and that illicit substances would account for her symptoms, she was no happy with my explanation stating i knew your were going to waste my time and say that, she stated that yes she 'relapsed acouple weeks ago and is concerned about working tomorrow. I did support her not working while impaired and offered a work note, she declined. I offered mental health consult which she declines. 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 Medical Records Medical records reviewed: Yes I reviewed the patient's medical records. Lab Data Lab results reviewed: Yes I reviewed the patient's lab results. Lab results narrative: Laboratory Tests Range/Units 01/20/21 01/20/21 01/20/21 17:50 17:50 18:03 WBC (4.4-10.8) 10^3/uL RBC (3.93-5.22) 10^6/uL Hgb (11.2-15.7) g/dL Hct (36.0-46.0) % MCV (80-95) fL MCH (27.0-33.0) pg MCHC (32.0-36.0) % RDW (11.7-14.6) % Plt Count (130-400) 10^3/uL MPV (8.0-11.0) fL Immature Gran % Neutrophils % Lymphocytes % Monocytes % Eosinophils % Basophils % Nucleated RBC % % Absolute Neutrophils (1.2-6.7) 10^3/uL Absolute Lymphocytes (1.2-3.4) 10^3/uL Absolute Monocytes (0.1-0.8) 10^3/uL Absolute Eosinophils (0.0-0.7) 10^3/uL Absolute Basophils (0.0-0.2) 10^3/uL Sodium (136-145) mmol/L 139 Potassium (3.5-5.1) mmol/L 3.1 L Chloride (98-107) mmol/L 105 Carbon Dioxide (21.0-32.0) mmol/L 32.2 H Anion Gap (3-11) mmol/L 1.8 L BUN (7-18) mg/dL 4 L Creatinine (0.55-1.02) mg/dL 1.0 Estimated GFR/1.73 m2 (mL/min/1.73m2) >= 60.00 Glucose (74-106) mg/dL 109 H Calcium (8.5-10.1) mg/dL 9.2 Total Bilirubin (0.2-1.0) mg/dL 0.1 L AST (15-37) U/L 25 ALT (14-59) U/L 48 Alkaline Phosphatase (46-116) U/L 95 Total Protein (6.4-8.2) g/dL 7.7 Albumin (3.4-5.0) g/dL 3.4 Urine Color (Yellow) Yellow Urine Clarity (Clear) Sl Cloudy Urine pH (5-8) 7.0 Ur Specific [place] (1.005-1.025) 1.015 Urine Protein (Negative) mg/dL Negative Urine Ketones (Negative) mg/dL Negative Urine Blood (Negative) Negative Urine Nitrite (Negative) Negative Urine Bilirubin (Negative) Negative Urine Urobilinogen (Up TO 0.2) EU/dL 0.2 Ur Leukocyte Esterase (Negative) Negative Urine Glucose (Negative) mg/dL Negative Urine Opiates Screen (Negative) Negative Urine Methadone Screen (Negative) Positive A Ur Barbiturates Screen (Negative) Negative Ur Tricyclics Screen (Negative) Positive A Ur Amphetamines Screen (Negative) Positive A U Benzodiazepines Scrn (Negative) Negative Urine Cocaine Screen (Negative) Positive A Ur THC Screen (Negative) Negative Ethyl Alcohol (<3) mg/dL Range/Units 01/20/21 01/20/21 18:03 18:03 WBC (4.4-10.8) 10^3/uL 6.64 RBC (3.93-5.22) 10^6/uL 3.81 L Hgb (11.2-15.7) g/dL 10.5 L Hct (36.0-46.0) % 33.7 L MCV (80-95) fL 88.5 MCH (27.0-33.0) pg 27.6 MCHC (32.0-36.0) % 31.2 L RDW (11.7-14.6) % 14.6 Plt Count (130-400) 10^3/uL 271 MPV (8.0-11.0) fL 11.0 Immature Gran % 0.2 Neutrophils % 47.3 Lymphocytes % 40.5 Monocytes % 6.0 Eosinophils % 5.7 Basophils % 0.3 Nucleated RBC % % 0 Absolute Neutrophils (1.2-6.7) 10^3/uL 3.14 Absolute Lymphocytes (1.2-3.4) 10^3/uL 2.69 Absolute Monocytes (0.1-0.8) 10^3/uL 0.40 Absolute Eosinophils (0.0-0.7) 10^3/uL 0.38 Absolute Basophils (0.0-0.2) 10^3/uL 0.02 Sodium (136-145) mmol/L Potassium (3.5-5.1) mmol/L Chloride (98-107) mmol/L Carbon Dioxide (21.0-32.0) mmol/L Anion Gap (3-11) mmol/L BUN (7-18) mg/dL Creatinine (0.55-1.02) mg/dL Estimated GFR/1.73 m2 (mL/min/1.73m2) Glucose (74-106) mg/dL Calcium (8.5-10.1) mg/dL Total Bilirubin (0.2-1.0) mg/dL AST (15-37) U/L ALT (14-59) U/L Alkaline Phosphatase (46-116) U/L Total Protein (6.4-8.2) g/dL Albumin (3.4-5.0) g/dL Urine Color (Yellow) Urine Clarity (Clear) Urine pH (5-8) Ur Specific [place] (1.005-1.025) Urine Protein (Negative) mg/dL Urine Ketones (Negative) mg/dL Urine Blood (Negative) Urine Nitrite (Negative) Urine Bilirubin (Negative) Urine Urobilinogen (Up TO 0.2) EU/dL Ur Leukocyte Esterase (Negative) Urine Glucose (Negative) mg/dL Urine Opiates Screen (Negative) Urine Methadone Screen (Negative) Ur Barbiturates Screen (Negative) Ur Tricyclics Screen (Negative) Ur Amphetamines Screen (Negative) U Benzodiazepines Scrn (Negative) Urine Cocaine Screen (Negative) Ur THC Screen (Negative) Ethyl Alcohol (<3) mg/dL < 3.0 HPI General Date/Time Provider Initiated Documentation: 01/20/21 16:06. Information obtained by: patient. HPI Narrative: patient presents for evaluation of feeling off, denies suicidal or homicidal ideation. reports she has relapsed and is using illegal substances again. doesn't feel she can work tomorrow. Related Data Home Medications Medication Instructions Recorded Confirmed methadone [Dolophine] 110 mg PO DAILY 09/20/12 01/20/21 amitriptyline 150 mg PO HS 10/05/16 01/20/21 clonidine HCl 0.1 mg PO HS 03/16/20 01/20/21 zolpidem 10 mg PO QHS 03/16/20 01/20/21 gabapentin 800 mg PO TID 01/18/21 01/20/21 Allergies Allergy/AdvReac Type Severity Reaction Status Date / Time Penicillins Allergy Mild Hives Unverified 01/20/21 15:19 General Stated Complaint: Anxiety KARIS: 3 Review of Systems All systems reviewed & are unremarkable except as noted in HPI and below PFSH Surgical History section (~2004) Family History Mother Colon cancer Dx in 50s Pancreatic cancer Stroke Social History Smoking/Tobacco Use Status: Current every day Tobacco Type: cigarettes Smoking risk assessment performed?: Yes Alcohol Intake: never Drug use: Current Sobriety Substance use type: does not use Do you feel safe at home: Yes Do you feel safe in your relationship?: Yes Exam Const General: disheveled, ill appearing (older than stated age) chronically and intoxicated appearing Nutritional Appearance: overweight Orientation: alert, awake and oriented x3 Resp Effort & Inspection: normal respiratory effort Cardio Rate: regular rate Rhythm: regular rhythm GI Inspection: normal to inspection Palpation: soft Course Vital Signs Vital signs: Vital Signs Temperature 37.1 C 01/20/21 15:10 Pulse 98 H 01/20/21 15:10 Respiratory Rate 20 01/20/21 15:10 Blood Pressure 125/72 01/20/21 15:10 Pulse Oximetry 97 01/20/21 15:10 Temperature 37.1 C 01/20/21 15:10 Pulse 98 H 01/20/21 15:10 Respiratory Rate 20 01/20/21 15:10 Respiratory Effort 01/20/21 15:21 Blood Pressure 125/72 01/20/21 15:10 Blood Pressure Position Sitting 01/20/21 15:10 Pulse Oximetry 97 01/20/21 15:10 Oxygen Delivery Method Room Air 01/20/21 15:10 Oxygen Flow Rate 0 01/20/21 15:10 Pain Level 0 01/20/21 15:10 Comment states she does not do well in the heat 01/20/21 15:10 Lab/Test Results Lab/Test Results: Laboratory Tests Range/Units 01/20/21 01/20/21 01/20/21 17:50 17:50 18:03 WBC (4.4-10.8) 10^3/uL RBC (3.93-5.22) 10^6/uL Hgb (11.2-15.7) g/dL Hct (36.0-46.0) % MCV (80-95) fL MCH (27.0-33.0) pg MCHC (32.0-36.0) % RDW (11.7-14.6) % Plt Count (130-400) 10^3/uL MPV (8.0-11.0) fL Immature Gran % Neutrophils % Lymphocytes % Monocytes % Eosinophils % Basophils % Nucleated RBC % % Absolute Neutrophils (1.2-6.7) 10^3/uL Absolute Lymphocytes (1.2-3.4) 10^3/uL Absolute Monocytes (0.1-0.8) 10^3/uL Absolute Eosinophils (0.0-0.7) 10^3/uL Absolute Basophils (0.0-0.2) 10^3/uL Sodium (136-145) mmol/L 139 Potassium (3.5-5.1) mmol/L 3.1 L Chloride (98-107) mmol/L 105 Carbon Dioxide (21.0-32.0) mmol/L 32.2 H Anion Gap (3-11) mmol/L 1.8 L BUN (7-18) mg/dL 4 L Creatinine (0.55-1.02) mg/dL 1.0 Estimated GFR/1.73 m2 (mL/min/1.73m2) >= 60.00 Glucose (74-106) mg/dL 109 H Calcium (8.5-10.1) mg/dL 9.2 Total Bilirubin (0.2-1.0) mg/dL 0.1 L AST (15-37) U/L 25 ALT (14-59) U/L 48 Alkaline Phosphatase (46-116) U/L 95 Total Protein (6.4-8.2) g/dL 7.7 Albumin (3.4-5.0) g/dL 3.4 Urine Color (Yellow) Yellow Urine Clarity (Clear) Sl Cloudy Urine pH (5-8) 7.0 Ur Specific [place] (1.005-1.025) 1.015 Urine Protein (Negative) mg/dL Negative Urine Ketones (Negative) mg/dL Negative Urine Blood (Negative) Negative Urine Nitrite (Negative) Negative Urine Bilirubin (Negative) Negative Urine Urobilinogen (Up TO 0.2) EU/dL 0.2 Ur Leukocyte Esterase (Negative) Negative Urine Glucose (Negative) mg/dL Negative Urine Opiates Screen (Negative) Negative Urine Methadone Screen (Negative) Positive A Ur Barbiturates Screen (Negative) Negative Ur Tricyclics Screen (Negative) Positive A Ur Amphetamines Screen (Negative) Positive A U Benzodiazepines Scrn (Negative) Negative Urine Cocaine Screen (Negative) Positive A Ur THC Screen (Negative) Negative Ethyl Alcohol (<3) mg/dL Range/Units 01/20/21 01/20/21 18:03 18:03 WBC (4.4-10.8) 10^3/uL 6.64 RBC (3.93-5.22) 10^6/uL 3.81 L Hgb (11.2-15.7) g/dL 10.5 L Hct (36.0-46.0) % 33.7 L MCV (80-95) fL 88.5 MCH (27.0-33.0) pg 27.6 MCHC (32.0-36.0) % 31.2 L RDW (11.7-14.6) % 14.6 Plt Count (130-400) 10^3/uL 271 MPV (8.0-11.0) fL 11.0 Immature Gran % 0.2 Neutrophils % 47.3 Lymphocytes % 40.5 Monocytes % 6.0 Eosinophils % 5.7 Basophils % 0.3 Nucleated RBC % % 0 Absolute Neutrophils (1.2-6.7) 10^3/uL 3.14 Absolute Lymphocytes (1.2-3.4) 10^3/uL 2.69 Absolute Monocytes (0.1-0.8) 10^3/uL 0.40 Absolute Eosinophils (0.0-0.7) 10^3/uL 0.38 Absolute Basophils (0.0-0.2) 10^3/uL 0.02 Sodium (136-145) mmol/L Potassium (3.5-5.1) mmol/L Chloride (98-107) mmol/L Carbon Dioxide (21.0-32.0) mmol/L Anion Gap (3-11) mmol/L BUN (7-18) mg/dL Creatinine (0.55-1.02) mg/dL Estimated GFR/1.73 m2 (mL/min/1.73m2) Glucose (74-106) mg/dL Calcium (8.5-10.1) mg/dL Total Bilirubin (0.2-1.0) mg/dL AST (15-37) U/L ALT (14-59) U/L Alkaline Phosphatase (46-116) U/L Total Protein (6.4-8.2) g/dL Albumin (3.4-5.0) g/dL Urine Color (Yellow) Urine Clarity (Clear) Urine pH (5-8) Ur Specific [place] (1.005-1.025) Urine Protein (Negative) mg/dL Urine Ketones (Negative) mg/dL Urine Blood (Negative) Urine Nitrite (Negative) Urine Bilirubin (Negative) Urine Urobilinogen (Up TO 0.2) EU/dL Ur Leukocyte Esterase (Negative) Urine Glucose (Negative) mg/dL Urine Opiates Screen (Negative) Urine Methadone Screen (Negative) Ur Barbiturates Screen (Negative) Ur Tricyclics Screen (Negative) Ur Amphetamines Screen (Negative) U Benzodiazepines Scrn (Negative) Urine Cocaine Screen (Negative) Ur THC Screen (Negative) Ethyl Alcohol (<3) mg/dL < 3.0 POC- Test(urine) Negative
[2021-01-20 19:34] VITALS: BP 125/72; PULSE 98; RESP 20; TEMP 37.1; O2SAT 97
== END 2021-01-20 19:39 | disposition home or self-care (01) ==
PROVIDERS: Physician Assistant; Emergency Provider Nurse Practitioner Acute Care; PCP Nurse Practitioner Family
DX: F45.21 Hypochondriasis (principal); F14.10 Cocaine abuse, uncomplicated; F11.10 Opioid abuse, uncomplicated; F19.10 Other psychoactive substance abuse, uncomplicated
CPT/HCPCS: 36415; 80053; 80307; 81025; 99283; 80320; 81003; 85025

== ENCOUNTER 2021-02-18 14:07 | Emergency (ER) | payer MEDICAID, SELFPAY ==
[2021-02-18 14:14] VITALS: BP 123/81; PULSE 90; RESP 18; TEMP 36.4; O2SAT 97
--- NOTE | 2021-02-18 14:41 | ED.GENADUL_ITS ---
Discharge Plan Disposition Patient Disposition: HOME Condition: Stable Discharge Details Clinical Impression: URI (upper respiratory infection) Primary Care Provider: Cherie Zepeda ED Provider: Venecia Gold Home Meds and New Rx's Prescriptions: Continued methadone [Dolophine] 10 MG tablet 110 mg PO DAILY RF: 0 clonidine HCl 0.1 mg tablet 0.1 mg PO HS RF: 0 zolpidem 10 mg tablet 10 mg PO QHS RF: 0 gabapentin 800 mg Tablet 800 mg PO TID RF: 0 amitriptyline 150 MG tablet 150 mg PO HS RF: 0 Discharge Instructions Instructions: Upper Respiratory Infection (ED) Additional Instructions: Your exam is concerning for viral illness, such as COVID. Please encourage hydration. May continue with tylenol and/or Ibuprofen as needed for discomfort. If your acid reflux continues to be an issue, you can use Mylanta or tums. Your COVID testing is pending. Please quarantine until these results have returned. Encourage water intake. Please cut back on energy drinks. Please follow up with primary care in 1-2 weeks for reevaluation. If you develop fevers/chills, shortness of breath, difficuty breathing, rash or other new/worsening symptoms please seek care urgently once again. Stand Alone Forms: Work Release Discharge Data Discharge Date/Time-TO BE ENTERED AT DEPARTURE: 02/18/21 15:14 Medical Decision Making Patient is a pleasant 40 year old female presenting today with c/c of general unwell. States for the past 2 days she has had body aches, chills, runny nose, cough. Denies SOB, CP. No sore throat. Denies fevers. No GI upset. Patient is not fully vaccinated against COVID 19. She states that she had loss of smell/taste but that this had since returned. On exam, patient appears nontoxic. VS are stable. She is not tachycardic, hypoxic or febrile. No abnormality on HEENT exam. Lungs are clear. No meningeal signs. Patient and I discuss differential. Concerned for potential COVID. I do not see evidence on history or exam to suggest sepsis, pneumonia or bacterial infection. Will obtain COVID testing. Encouraged quarantine. Encouraged hydration. She reports she drinks no water during the day but that she drinks several energy drinks. Discussed this and encouraged healthier dietary habits. Return precautions discussed. Advised evaluation with PCP in the next 1-2 weeks for reevaluation. All of her quesitons and concerns were addressed, she is in agreement with this plan. HPI General Mode of arrival: ambulatory . Date/Time Provider Initiated Documentation: 02/18/21 14:12 . Limitations to Documentation: no limitations . Information obtained by: patient, RN notes reviewed and old records reviewed . History of Present Illness 40 year old F presents to the emergency department with the chief complaint of body aches, runny nose, fatigue, described as moderate, with intensity rated at 7. Quality is described as aching, Patient reports radiation to (reports generalized body aches). Patient started experiencing this day(s) (2) and it has been constant. No relieving factors improve symptom(s), No exacerbating factors reported . Patient notes cough and malaise; denies chest pain, fever/chills, headaches, loss of appetite, nausea/vomiting, rash, shortness of breath and syncope. Patient did receive the following treatments prior to arrival, none Related Data Home Medications Medication Instructions Recorded Confirmed methadone [Dolophine] 110 mg PO DAILY 09/20/12 01/20/21 amitriptyline 150 mg PO HS 10/05/16 01/20/21 clonidine HCl 0.1 mg PO HS 03/16/20 01/20/21 zolpidem 10 mg PO QHS 03/16/20 01/20/21 gabapentin 800 mg PO TID 01/18/21 01/20/21 Allergies Allergy/AdvReac Type Severity Reaction Status Date / Time Penicillins Allergy Mild Hives Unverified 01/20/21 15:19 General Stated Complaint: GenMedical KARIS: 3 Review of Systems Constitutional Constitutional: Reports as per HPI and Denies headache(s) ENT Ears, Nose, Mouth, and Throat: Reports as per HPI, Denies dizziness, Denies otalgia, Denies headache(s), Reports nasal congestion, Reports nasal discharge, Denies sore throat and Reports other (had loss of smell/taste, returned now) Cardiovascular Cardiovascular: Reports as per HPI, Denies chest pain and Denies dyspnea Respiratory Respiratory: Reports as per HPI and Denies dyspnea Gastrointestinal Gastrointestinal: Reports as per HPI, Denies abdominal pain, Denies change in bowel habits, Denies nausea and Denies vomiting Integumentary/Breasts Skin/Breast: Reports as per HPI and Denies rash Neurologic Neurologic: Reports as per HPI, Denies dizziness and Denies headache(s) PFSH Surgical History section (~2004) Family History Mother Colon cancer Dx in 50s Pancreatic cancer Stroke Social History Smoking/Tobacco Use Status: Current every day Tobacco Type: cigarettes Smoking risk assessment performed?: Yes Alcohol Intake: never Drug use: Current Sobriety Substance use type: does not use Do you feel safe at home: Yes Do you feel safe in your relationship?: Yes Exam Const General: cooperative, healthy appearing, comfortable, no acute distress, well developed and well groomed Nutritional Appearance: well nourished and overweight Orientation: alert and awake [place] Head: normal to inspection, normocephalic and atraumatic Ears: hearing grossly normal bilaterally, external ears normal and TM's normal bilaterally General nose exam: external nose normal and nares normal Face and sinus: normal facial exam, sinuses nontender and face symmetric Mouth: oral mucosae normal, lip normal, tongue normal, oropharynx normal and moist mucous membranes Teeth and gingiva: dentition normal Throat: posterior oropharynx normal, tonsils normal and uvula midline Eyes General: appearance normal, both eyes and all related structures Neck Neck: normal visual inspection, full ROM, no lymphadenopathy and no meningeal signs Resp Effort & Inspection: normal respiratory effort, able to speak in complete sentences and no respiratory distress Auscultation: clear to auscultation bilaterally, no rales, no rhonchi and no wheezes Cardio Rate: regular rate Rhythm: regular rhythm Heart Sounds: S1 normal and S2 normal Skin General skin exam: no rashes or lesions noted Neuro General: patient alert and patient awake Cognition: normal cognition Speech: speech normal Gait: normal gait Psych Appearance: grossly normal and well kempt Mental Status: mental status grossly normal Speech and Movement: speech and movement normal Course Vital Signs Vital signs: Vital Signs Temperature 36.4 C L 02/18/21 14:14 Pulse 90 02/18/21 14:14 Respiratory Rate 18 02/18/21 14:14 Blood Pressure 123/81 02/18/21 14:14 Pulse Oximetry 97 02/18/21 14:14 Temperature 36.4 C L 02/18/21 14:14 Temperature Source Skin 02/18/21 14:14 Pulse 90 02/18/21 14:14 Respiratory Rate 18 02/18/21 14:14 Respiratory Effort 02/18/21 14:18 Blood Pressure 123/81 02/18/21 14:14 Blood Pressure Position Sitting 02/18/21 14:14 Pulse Oximetry 97 02/18/21 14:14 Pain Level 7 02/18/21 14:14
[2021-02-18] MEDS: Acetaminophen 500 MG TAB PO (15:03)
[2021-02-18] MEDS: Mylanta Suspension 30 ML CUP PO (15:04)
[2021-02-18] MEDS: Ibuprofen 600 MG TAB PO (15:04)
[2021-02-18 15:06] VITALS: RESP 18
[2021-02-20 16:23] LABS: COVID-19 RT-PCR UVMMC Result Negative (Negative)
--- NOTE | 2021-02-21 08:44 | NUR.NOTE ---
Nursing Note: Negative Covid given to approved contact--pt has no phone--verbalizes understanding. result
== END 2021-02-18 15:14 | disposition home or self-care (01) ==
PROVIDERS: Emergency Provider Physician Assistant; PCP Nurse Practitioner
DX: J06.9 Acute upper respiratory infection, unspecified (principal); Z20.822 Contact with and (suspected) exposure to COVID-19
CPT/HCPCS: 99282; U0003

== ENCOUNTER 2021-03-16 16:56 | Outpatient (REF) | payer MEDICAID, SELFPAY ==
[2021-03-18 12:09] LABS: COVID-19 RT-PCR UVMMC Result Negative (Negative)
== END 2021-03-16 16:57 | disposition home or self-care (01) ==
LOC: LBN 16:56
PROVIDERS: PCP Nurse Practitioner; Visit Provider Physician Assistant Medical
DX: Z20.822 Contact with and (suspected) exposure to COVID-19 (principal)
CPT/HCPCS: U0003